=== PATIENT | male | born 1960 | race Caucasian/White ===

== ENCOUNTER 2020-03-13 10:38 | Emergency (ER) | payer BC ==
[~2020-03-13] VITALS: Ht 175.3 cm; Wt 56.0 kg
[2020-03-13 11:27] VITALS: BP 117/79
--- NOTE | 2020-03-13 11:42 | PHYS DOC ---
Past Medical History Past Medical History: No Pertinent History Past Surgical History: Other Additional Past Surgical Histo: left carpal tunnel Smoking Status: Current Every Day Smoker Alcohol Use: Heavy General Adult EDM: Chief Complaint: LOWER EXT PAIN HPI: HPI: Patient is a 60 year old [f__sex] who presents with [] Review of Systems: Review of Systems: Constitutional: Denies fever or chills. [] Eyes: Denies change in visual acuity. [] HENT: Denies nasal congestion or sore throat. [] Respiratory: Denies cough or shortness of breath. [] Cardiovascular: Denies chest pain or edema. [] GI: Denies abdominal pain, nausea, vomiting, bloody stools or diarrhea. [] : Denies dysuria. [] Musculoskeletal: Denies back pain or joint pain. [] Integument: Denies rash. [] Neurologic: Denies headache, focal weakness or sensory changes. [] Endocrine: Denies polyuria or polydipsia. [] Lymphatic: Denies swollen glands. [] Psychiatric: Denies depression or anxiety. [] Heart Score: Risk Factors: Risk Factors: DM, Current or recent (<one month) smoker, HTN, HLP, family history of CAD, obesity. Risk Scores: Score 0 - 3: 2.5% MACE over next 6 weeks - Discharge Home Score 4 - 6: 20.3% MACE over next 6 weeks - Admit for Clinical Observation Score 7 - 10: 72.7% MACE over next 6 weeks - Early Invasive Strategies Allergies: Allergies: Allergies Coded Allergies Type Severity Reaction Last Updated Verified No Known Drug Allergies 03/13/20 No Physical Exam: PE: Constitutional: Well developed, well nourished, no acute distress, non-toxic appearance. [] HENT: Normocephalic, atraumatic, bilateral external ears normal, oropharynx moist, no oral exudates, nose normal. [] Eyes: PERRLA, EOMI, conjunctiva normal, no discharge. [] Neck: Normal range of motion, no tenderness, supple, no stridor. [] Cardiovascular:Heart rate regular rhythm, no murmur [] Lungs & Thorax: Bilateral breath sounds clear to auscultation [] Abdomen: Bowel sounds normal, soft, no tenderness, no masses, no pulsatile masses. [] Skin: Warm, dry, no erythema, no rash. [] Back: No tenderness, no CVA tenderness. [] Extremities: No tenderness, no cyanosis, no clubbing, ROM intact, no edema. [] Neurologic: Alert and oriented X 3, normal motor function, normal sensory function, no focal deficits noted. [] Psychologic: Affect normal, judgement normal, mood normal. [] Current Patient Data: Vital Signs: Vital Signs Date Time Temp Pulse Resp B/P (MAP) Pulse Ox O2 Delivery O2 Flow Rate FiO2 03/13/20 11:27 99.0 90 18 117/79 (92) 98 Room Air 99.0 EKG: EKG: [] Radiology/Procedures: Radiology/Procedures: [][facility] [address] [place] [address] IMAGING REPORT Signed PATIENT: JACKSON PIÑA ACCOUNT: [id number] : 1960 LOCATION: ER AGE: 60 SEX: M EXAM STATUS: REG ER ORD. PHYSICIAN: ADITI PATEL DO REASON: LOWER BACK PAIN THAT RADIATING TO RIGHT LEG PROCEDURE: LUMBAR SPINE 2-3V LUMBAR SPINE 2-3V 03/13/2020 11:41 AM INDICATION: Lower back pain radiating to the right leg COMPARISON: None available. TECHNIQUE: 3 views of the lumbar spine are provided. FINDINGS/ IMPRESSION: There are 5 nonrib-bearing lumbar vertebral bodies. There is minimal retrolisthesis of L1 on L2, L2 on L3 and L3 on L4. No acute fractures identified. Spinous processes are intact. Transverse processes are intact. Nonobstructed bowel gas pattern. Electronically signed by: Martha Cintron MD (03/13/2020 12:18 PM) [id number] DICTATED and SIGNED BY: MARTHA CINTRON MD DATE: 03/13/20 1218 Course & Med Decision Making: Course & Med Decision Making Pertinent Labs and Imaging studies reviewed. (See chart for details) [] Dragon Disclaimer: Dragon Disclaimer: This electronic medical record was generated, in whole or in part, using a voice recognition dictation system. Departure Departure Impression: Primary Impression: Right-sided low back pain with sciatica Disposition: 01 HOME, SELF-CARE Condition: STABLE Patient Instructions: Sciatica Additional Instructions: PLEASE FOLLOW UP WITH YOUR FAMILY DOCTOR FOR OUTPATIENT MRI OF YOUR LUMBAR SPINE THIS MONTH. Scripts Naproxen Sodium (ANAPROX DS) 550 Mg Tablet 1 TAB PO BID PRN for PAIN for 10 Days, #20 TAB 0 Refills Prov: ADITI PATEL DO 03/13/20 Prednisone (PREDNISONE) 20 Mg Tablet 20 MG PO DAILY for 7 Days, #7 TAB Prov: ADITI PATEL DO 03/13/20 Justicifation of Admission Dx: Justifications for Admission: Justification of Admission Dx: N/A ADITI PATEL DO Mar 13, 2020 11:42
--- NOTE | 2020-03-13 12:21 | RAD ---
LUMBAR SPINE 2-3V 03/13/2020 11:41 AM INDICATION: Lower back pain radiating to the right leg COMPARISON: None available. TECHNIQUE: 3 views of the lumbar spine are provided. FINDINGS/ IMPRESSION: There are 5 nonrib-bearing lumbar vertebral bodies. There is minimal retrolisthesis of L1 on L2, L2 on L3 and L3 on L4. No acute fractures identified. Spinous processes are intact. Transverse processes are intact. Nonobstructed bowel gas pattern. Electronically signed by: Martha Ochoa MD (03/13/2020 12:18 PM) [id number]
[2020-03-13] MEDS ORDERED: PRED20TA PO (12:33)
[2020-03-13] MEDS ORDERED: NAPR-682 PO (12:33)
== END 2020-03-13 12:40 | disposition home or self-care (01) ==
LOC: ER 10:38
DX: M54.41 Lumbago with sciatica, right side (principal); F17.200 Nicotine dependence, unspecified, uncomplicated; F10.20 Alcohol dependence, uncomplicated; Y90.9 Presence of alcohol in blood, level not specified
CPT/HCPCS: 72100; 99283

== ENCOUNTER → 2020-05-11 | Outpatient (CLI) | payer BC ==
[~2020-05-11] MED LIST: IBUP-1027 PO; IOHEXOL 180 MG/ML 10 ML VIAL. ONE; NAPR-682 PO; NAPR220C4 PO; PRED20TA PO; methylPREDNISolone ACETATE 40 MG/ML VIAL. ONE; methylPREDNISolone ACETATE 80 MG/ML VIAL. ONE
--- NOTE | 2020-05-11 09:37 | PDOC1 ---
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 Patient reports pain now is increasing in the low back rating the posterior gluteus more on the right than the left but present bilaterally posterior gluteus posterior thighs posterior calf into the ankles and feet with some numbness and tingling in the toes on the right side as well. Patient has tried ibuprofen as well as Aleve both which decreased the pain but only for about an hour. Patient reports he is having difficulty sleeping at night will awaken him sleep release once a night does not affect his bowel bladder control does affect his ability to walk is not use any assistive devices reports at times he feels very unstable and he has significant fatigue in the right leg walking more than about 10 minutes. Patient reports he been off work now for over a month secondary to the pain. Patient scribes pain as tingling and numbness in the right leg a little aching in the back shooting and throbbing in the right leg and some in the left leg as well patient reports his disability rating 0-10 10 being the worst is a 7 with him how responsibilities and recreation 6 with social activity 10 with occupational activities 5 with self-care and 0 with life support activities except for sleeping. Patient have an MRI scan lumbar spine showing multilevel degenerative change and L5-S1 shallow broad-based posterior central right paracentral disc protrusion with a right foraminal to lateral disc retrusion osteophyte complex superimposed on disc bulge and endplate remodeling. Patient has associated mild left foraminal stenosis and abutment of the exiting L5 nerve roots. Patient reports no overt muscular loss but significant fatigability no bowel or bladder incontinence. PAST MEDICAL HISTORY: PMH: Hearing loss, arthritis, cigarette smoking PREVIOUS SURGERIES: Past Surgical Hx: Carpal tunnel release 2018 CURRENT MEDICATIONS: Current Meds: Active Scripts Medications Dose Route/Sig Max Daily Dose Days Date Category Aleve (Naproxen Sodium) 220 Mg Capsule 220 Mg PO BID 05/11/20 Reported Ibuprofen 400 Mg Tablet 400 Mg PO PRN Q6HRS PRN 05/11/20 Reported ALLERGIES; Allergies: Coded Allergies: No Known Drug Allergies (Unverified , 03/13/20) FAMILY HISTORY: Family Hx: No major medical problems or conditions that he is aware of SOCIAL HISTORY: Social Hx: Patient drinks about 4 beers a day smokes marijuana occasionally once or twice a month smokes cigarettes about 1 pack a day for the past 40 years continues to smoke patient is single lives locally in [facility] works as a concrete construction trades contractor REVIEW OF SYSTEMS: ROS: Positive for those items mentioned in history of present illness, all systems are reviewed, otherwise negative, is complete full and well-documented on patient's chart. PHYSICAL EXAM: VS: Blood pressure is 123/83 pulse 99 respirations 18 temperature 98.1 F height is 5 feet 8 inches weight is 118 pounds PE: PHYSICAL EXAMINATION: GENERAL: The patient is awake, alert, oriented, appropriate, very pleasant demeanor HEENT: Shows normocephalic, atraumatic. Extraocular movements are intact and symmetrical. Oral cavity: Mucous membranes moist and pink. Dentition is intact. NECK: Shows anterior throat supple without palpable lymphadenopathy noted. Swallow reflex symmetrical. CHEST: Shows normal on inspection. Breath sounds are clear bilaterally, no rales rhonchi or wheezes. HEART: Shows S1, S2 clear. No murmurs auscultated. ABDOMEN: Soft, nontender, nondistended, flat. No palpable organomegaly is noted. No rebound or guarding demonstrated. BACK: Shows spine grossly in the midline. Normal-appearing cervical lordotic curvature. There is slightly increased thoracic kyphosis, some minor flattening of the lumbar lordotic curvature. Lumbar paraspinous muscles show symmetrical on inspection, on palpation shows some moderate tenderness diffusely throughout the upper, middle and lower distribution of the paraspinous muscles bilaterally without specific trigger points, without radiation of pain. The patient has good rotational motion of the lumbar spine, both laterally as well as extension and flexion without significant difficulty. No tenderness over the spinous processes, sacrum or sacroiliac regions. EXTREMITIES: Lower extremities show deep tendon reflexes 2+ in the patellar and tendo calcaneus tendons. Motor exam is 4 on a scale of 5 with right dorsiflexion, extension, quadriceps and hamstring flexion and 5/5 on the left. Peripheral pulses are 1+ posterior tibial. No peripheral edema is noted bilaterally. Lower extremities are warm and dry to touch, equal in color and appearance. Straight leg raise noted to be positive on the right about 35 degrees, left side is negative. Gaenslen's and Doug's maneuvers are negative bilaterally as well. The patient is able to stand, stand on his toes without significant difficulty or loss of balance is walking with a slight favoring gait does appear to favor the right lower extremity not use any assistive devices to ambulate. SKIN: Shows warm and dry, good turgor. No edema. No sores, rashes or bruising throughout. IMPRESSION: Impression: 60-year-old male with approximate 1 year history increasing pain low back right greater than left lower extremity in a radicular fashion MRI scan lumbar spine as noted Arthritis Cigarette smoking Plan: Options were discussed with the patient including conservative medical management physical therapies interventional techniques. He like to pursue interventional techniques. We discussed a lumbar epidural steroid injection using descriptions as well as anatomical models to describe the procedure. Risks were discussed including but not limited to: Bleeding, infection, possibility of epidural hematoma and subsequent neurological compromise, dural puncture, headaches, spinal cord and/or nerve damage, side effects of steroid medication, and poor results regarding pain control. Patient understands wished to proceed. Patient will return to clinic in approximate 2 weeks for follow-up, was counseled as to return appointment activity level and side effects to be aware of. Procedure is lumbar epidural steroid injection under local anesthetic using sterile prep and drape at the L5-S1 level using C-arm fluoroscopic guidance in both AP and lateral views medications injected is 120 mg Depo-Medrol + 10 mL preservative-free normal saline and 2 mL contrast- condition at discharge is stable patient tolerated procedure well had no complications. NANCY VERAS MD May 11, 2020 09:37
== END | disposition home or self-care (01) ==
LOC: PNCL 08:36
PROVIDERS: ATTEND Anesthesiology
DX: M54.5 Low back pain (principal); M79.604 Pain in right leg; M48.061 Spinal stenosis, lumbar region without neurogenic claudication; M19.90 Unspecified osteoarthritis, unspecified site; Z87.891 Personal history of nicotine dependence; Z79.899 Other long term (current) drug therapy; Z98.890 Other specified postprocedural states
CPT/HCPCS: 62323; J1030; J1040; Q9965

== ENCOUNTER → 2020-05-25 | Outpatient (CLI) | payer BC ==
[~2020-05-25] MED LIST changes: +GABA-585 PO
--- NOTE | 2020-05-25 08:42 | PDOC ---
Progress Note - Pain Clinic Date of Service: DOS: DATE: 05/25/20 TIME: 08:39 Diagnosis: Dx: Lumbar radiculopathy with lumbar degenerative disc disease and lumbar spinal stenosis History or Present Illness: HPI: 60-year-old male returns follow-up status post lumbar epidural steroid injection x1. Patient reports good relief and only for few days after the injection now only about 5% improved overall patient ports pain low back right lower extremity posterior gluteus posterior lateral thigh posterior calf and into the foot with numbness and tingling patient ports the tingling in his foot was much better for few days after the injection but the rest the pain has been returned patient reports is aching and tingling on and off in intensity worse with walking standing changing position specially with bending or stooping and on his feet any more than about 5 to 10 minutes the pain is becoming unbearable. Patient reports it does not awaken her from sleep at night better with sitting or laying down. Patient rates his pain as an 8 on scale 10 is worse over the past week for an average 1 its least is a 4 today. Patient reports no new motor or sensory deficits no new bowel or bladder incontinence or other complaints. Physical Exam: VS: Blood pressure is 132/90 pulse 94 respirations 16 temperature 98.3 F is 5 foot 9 inches weight is 117 pounds PE: PHYSICAL EXAMINATION: GENERAL: The patient is awake, alert, oriented, appropriate, very pleasant demeanor HEENT: Shows normocephalic, atraumatic. Extraocular movements are intact and symmetrical. Oral cavity: Mucous membranes moist and pink. NECK: Shows anterior throat supple without palpable lymphadenopathy noted. Swallow reflex symmetrical. CHEST: Shows normal on inspection. Breath sounds are clear bilaterally, distant but no rales rhonchi or wheezes. HEART: Shows S1, S2 clear. No murmurs auscultated. ABDOMEN: Soft, nontender, nondistended, flat. No palpable organomegaly is noted. No rebound or guarding demonstrated. BACK: Shows spine grossly in the midline. Normal-appearing cervical lordotic curvature. There is slightly increased thoracic kyphosis, some minor flattening of the lumbar lordotic curvature. Lumbar paraspinous muscles show symmetrical on inspection, on palpation shows some moderate tenderness diffusely throughout the upper, middle and lower distribution of the paraspinous muscles without specific trigger points, without radiation of pain. The patient has good rotational motion of the lumbar spine, both laterally as well as extension and flexion without significant difficulty. No tenderness over the spinous processes, sacrum or sacroiliac regions. EXTREMITIES: Lower extremities show deep tendon reflexes 2+ in the patellar and tendo calcaneus tendons. Motor exam is 4 on a scale of 5 with right dorsiflexion, extension, quadriceps and hamstring flexion and 5/5 on the left. Peripheral pulses are 1+ posterior tibial. No peripheral edema is noted bilaterally. Lower extremities are warm and dry to touch, equal in color and appearance. SKIN: Shows warm and dry, good turgor. No edema. No sores, rashes or bruising throughout. Procedure: Procedure: Options were discussed with the patient. Patient chart was reviewed his current medication regimen updated current review of systems updated today as well. We will proceed with a second in a series lumbar epidural steroid injection today with fluoroscopic guidance. Risks were discussed including but not limited to: Bleeding, infection, possibility of epidural hematoma and subsequent neurological compromise, dural puncture, headaches, spinal cord and/or nerve damage, side effects of steroid medication, and poor results regarding pain control. Patient understands wished to proceed. Patient will return to the clinic in approximate 2 weeks for follow-up, was counseled as to return appointment activity level and side effects to be aware of. Medication Injected: Med Injected: Procedure is lumbar epidural steroid injection under local anesthetic using sterile prep and drape at the L5-S1 level using C-arm fluoroscopic guidance in both AP and lateral views medications injected is 120 mg Depo-Medrol + 10 mL preservative-free normal saline and 2 mL contrast- condition at discharge is stable patient tolerated procedure well had no complications. Condition at Discharge: Condition at Discharge: Condition at discharge is stable, patient tolerated the procedure well and had no complications. NANCY VERAS MD May 25, 2020 08:42
== END | disposition home or self-care (01) ==
LOC: PNCL 07:57
PROVIDERS: ATTEND Anesthesiology
DX: M51.16 Intervertebral disc disorders with radiculopathy, lumbar region (principal); M48.061 Spinal stenosis, lumbar region without neurogenic claudication; F17.210 Nicotine dependence, cigarettes, uncomplicated; Z79.899 Other long term (current) drug therapy; Z98.890 Other specified postprocedural states; Z72.89 Other problems related to lifestyle
CPT/HCPCS: 62323; J1030; J1040; Q9965

== ENCOUNTER → 2020-12-04 | Outpatient (CLI) | payer BC ==
[~2020-12-04] MED LIST changes: +DOCU-153 PO; +HYDR-2761 PO; -IOHEXOL 180 MG/ML 10 ML VIAL. ONE; +METH-562 PO; -methylPREDNISolone ACETATE 40 MG/ML VIAL. ONE; -methylPREDNISolone ACETATE 80 MG/ML VIAL. ONE
[2020-12-04 14:07] LABS: BASO # 0.1 x10^3/uL (0.0-0.2); BASO % 1 % (0-3); EOS # 0.1 x10^3/uL (0.0-0.7); EOS % 2 % (0-3); HEMATOCRIT 50.5 % (39.0-53.0); HEMOGLOBIN 17.7 g/dL (13.0-17.5); LYMPH # 1.2 x10^3/uL (1.0-4.8); LYMPH % 25 % (24-48); MEAN CORPUSCULAR HEMOGLOBIN 34 pg (25-35); MEAN CORPUSCULAR HGB CONC 35 g/dL (31-37); MEAN CORPUSCULAR VOLUME 97 fL (79-100); MONO % 21 % (0-9); NEUT # 2.4 x10^3/uL (1.8-7.7); NEUT % 52 % (31-73); PLATELET COUNT 232 x10^3/uL (140-400); RED BLOOD COUNT 5.22 x10^6/uL (4.30-5.70); RED CELL DISTRIBUTION WIDTH 14.7 % (11.5-14.5); WHITE BLOOD COUNT 4.6 x10^3/uL (4.0-11.0)
[2020-12-04 14:40] LABS: ALBUMIN 3.2 g/dL (3.4-5.0); ALBUMIN/GLOBULIN RATIO 0.8 (1.0-1.7); CALCIUM 8.2 mg/dL (8.5-10.1); GFR 76.5; POTASSIUM 3.8 mmol/L (3.5-5.1); TOTAL BILIRUBIN 0.4 mg/dL (0.2-1.0); TOTAL PROTEIN 7.3 g/dL (6.4-8.2)
[2020-12-04 15:09] LABS: % BANDS 6 % (0-9); % BASOS 2 % (0-3); % EOS 2 % (0-5); % MONOS 15 % (0-10); % SEGS 46 % (35-66); PLT ESTIMATE ADEQUATE (ADEQUATE)
[2020-12-04 15:12] LABS: % ATYL 2 % (0-0); % LYMPHS 27 % (24-48); ANISOCYTOSIS SLIGHT
== END ==
LOC: SURGPAT 13:14 → EDSTATUS 13:30
PROVIDERS: ATTEND Neurological Surgery
DX: Z01.818 Encounter for other preprocedural examination (principal); M51.16 Intervertebral disc disorders with radiculopathy, lumbar region; M54.5 Low back pain; M48.062 Spinal stenosis, lumbar region with neurogenic claudication
CPT/HCPCS: 36415; 80053; 85007; 85025; 87641

== ENCOUNTER → 2020-12-08 | Outpatient (CLI) | payer BC | LOC: LAB 11:20 | PROVIDERS: ATTEND Neurological Surgery | DX: Z01.812 Encounter for preprocedural laboratory examination (principal); Z20.822 Contact with and (suspected) exposure to COVID-19; M51.16 Intervertebral disc disorders with radiculopathy, lumbar region; M48.062 Spinal stenosis, lumbar region with neurogenic claudication | CPT/HCPCS: U0003 ==

== ENCOUNTER 2020-12-11 07:14 | Observation (INO) | payer BC ==
[2020-12-04 14:03] VITALS: BP 131/62
[2020-12-11] VITALS (10 sets, daily range): BP systolic 86–138; BP diastolic 43–83
[~2020-12-11] VITALS: Ht 175.3 cm; Wt 55.2 kg
[~2020-12-11 07:14] MED LIST changes: -DOCU-153 PO; -HYDR-2761 PO; +IV RINGERS,LACTATED 1000ML 1,000 ML IV SCH; -METH-562 PO; +PROCHLORPERAZINE 10 MG/2 ML VIAL. IVP PRN; +fentaNYL PF VIAL 100 MCG/2 ML VIAL IVP PRN
[2020-12-11] MEDS ORDERED: KETOROLAC 60 MG/2 ML VIAL. ONE (07:36)
[2020-12-11] MEDS ORDERED: GELATIN SPONGE SIZE 100. ONE (07:36)
[2020-12-11] MEDS ORDERED: BUPIVACAINE-EPI 0.5%-1:200000 MPF 30 ML VIAL. ONE (07:36)
[2020-12-11] MEDS ORDERED: THROMBIN TOPICAL 20,000 UNIT SPRAY.SYRN KIT TP ONE (07:36)
[2020-12-11] MEDS ORDERED: GLYCOPYRROLATE 1 MG/5 ML VIAL. ONE (08:13)
[2020-12-11] MEDS ORDERED: ROCURONIUM 50 MG/5 ML VIAL. ONE (08:13)
[2020-12-11] MEDS ORDERED: MIDAZOLAM HCL/PF 2 MG/2 ML VIAL. ONE (08:13)
[2020-12-11] MEDS ORDERED: REMIFENTANIL 2 MG VIAL. IV ONE (08:13)
[2020-12-11] MEDS ORDERED: PHENYLEPHRINE 10 MG/ML VIAL. ONE (08:20)
[2020-12-11] MEDS ORDERED: ONDANSETRON PF 4 MG/2 ML VIAL. ONE (08:22)
[2020-12-11] MEDS ORDERED: LIDOCAINE 2% PF 5 ML VIAL. ONE (08:22)
[2020-12-11] MEDS ORDERED: PROPOFOL 10 MG/ML (20ML) VIAL. IV ONE (08:22)
[2020-12-11] MEDS ORDERED: DESFLURANE > 120 MINUTES IH ONE (08:22)
[2020-12-11] MEDS ORDERED: DEXAMETHASONE SOD PHOS 20 MG/5 ML VIAL. ONE (08:22)
[2020-12-11] MEDS ORDERED: KETOROLAC 30 MG/ML VIAL. ONE (08:22)
[2020-12-11] MEDS ORDERED: PROPOFOL 50 ML IV ONE ×2 (09:36)
[2020-12-11] MEDS ORDERED: NEOSTIGMINE METHYLSULFATE 5 MG/5 ML SYRINGE. ONE (10:59)
[2020-12-11] MEDS ORDERED: ACETAMINOPHEN 325 MG TABLET. PO PRN (11:15)
[2020-12-11] MEDS ORDERED: MAG HYDROX/ALUMINUM HYD/SIMETH 30 ML ORAL.SUSP PO PRN (11:15)
[2020-12-11] MEDS ORDERED: CALCIUM CARBONATE 500 MG TAB.CHEW PO PRN (11:15)
[2020-12-11] MEDS ORDERED: fentaNYL PF VIAL 100 MCG/2 ML VIAL IVP PRN (11:15)
[2020-12-11] MEDS ORDERED: diphenhydrAMINE HCL 25 MG CAPSULE PO PRN (11:15)
[2020-12-11] MEDS ORDERED: METHOCARBAMOL 750 MG TABLET PO PRN (11:15)
[2020-12-11] MEDS ORDERED: MAGNESIUM HYDROXIDE 2,400 MG/30 ML ORAL.SUSP. PO PRN (11:15)
[2020-12-11] MEDS ORDERED: HYDROcodone/APAP 5/325MG 1 TAB TABLET PO PRN ×2 (11:15)
[2020-12-11] MEDS ORDERED: NALOXONE 0.4 MG/ML VIAL. IV PRN (11:15)
[2020-12-11] MEDS ORDERED: 0.9 % SODIUM CHLORIDE 10 ML DISP.SYRIN. IV PRN (11:15)
[2020-12-11] MEDS ORDERED: fentaNYL PF VIAL 100 MCG/2 ML VIAL ONE (11:23)
[2020-12-11] MEDS: fentaNYL PF VIAL 100 MCG/2 ML VIAL IVP PRN ×2 (11:29→11:44)
[2020-12-11] MEDS ORDERED: MORPHINE SULFATE 2 MG/ML INJ. ONE (11:40)
[2020-12-11] MEDS: MORPHINE SULFATE 2 MG/ML INJ. IVP PRN ×2 (11:44→11:55)
[2020-12-11] MEDS ORDERED: HYDROmorphone 2 MG/ML VIAL ONE (11:57)
--- NOTE | 2020-12-11 11:59 | OP ---
DATE OF SURGERY: 12/11/2020 PREOPERATIVE DIAGNOSIS: Herniated lumbar disc, L5-S1, right with foraminal disc herniation L5-S1, right. OPERATIONS PERFORMED: Hemilaminotomy and microdiscectomy L5-S1 right transfacet exposure with microdiscectomy for lateral herniated disk, L5-S1, right The operation was done with EMG monitoring, SSEP monitoring, fluoroscopy, microscopic dissection. SPECIMEN: Disc and decompression. SURGEON: Carroll Rueda M.D. HAULING CONTRACTOR: HAYDER Cervantes assisted with the surgery, she assisted with the exposure, the microdiscectomy as well as the closure. OPERATIVE INDICATIONS: The patient is a pleasant 60-year-old who developed intractable back and right leg pain, which failed conservative measures. On imaging studies, he had the above-mentioned findings. After failing to improve, I recommended lumbar microsurgery. I spoke with him about the surgery, the risks, the technique and expected postoperative course. I further explained that based on the length of time he had the problem, it was possible to get totally decompress the roots and he could continue to have difficulties with pain. He understood the surgery, he understood the risks, he understood the technique and he wished to go ahead. DESCRIPTION OF PROCEDURE: Following general endotracheal anesthesia, the patient was positioned prone on the Mike table. Lumbar region was prepped and draped in standard fashion. Layers of impulse boots were applied for DVT prophylaxis. The microscope was draped, fluoroscopy was draped and brought into the field and monitoring was established. Ancef 2 grams given less than one hour prior to initiation of surgery. Using fluoroscopic guidance, an incision was made over the L5-S1 interspace. I dissected down through skin and subcutaneous tissue, reflected the paraspinal muscles and brought in the high speed air drill with the microscope. The remainder of the surgery done with microscope using microscopic technique. I burred down a generous hemilaminotomy, trimmed away ligamentum flavum and exposed the dura and the exiting S1 root. There was a large bulging disc beneath this. At this point, then I worked superiorly and laterally as well as straight lateral from the disc and removed the medial side of the foramen and as I worked, I visualized the exiting L5 root. There was a large bone spur or disc osteophyte complex, which was lifting and compressing the inferior aspect of the L5 root as it moved laterally in the foramen. Then, I gently retracted the root superiorly, laterally and drilled this spur away with high speed air drill, I removed the disc in this location. Using a #11 blade incised the annulus and I performed a discectomy laterally. I then retracted as far medially and then performed a discectomy with pituitary rongeurs to fully decompress the S1 root. Following this, then I explored carefully. Both the S1 and L5 roots were well decompressed. I irrigated copiously. Throughout the operation, I maintained excellent hemostasis and then I gently remove the retractor, obtained hemostasis in the muscle and I closed the wound in layers with absorbable suture and the skin was closed with 4-0 subcuticular stitch. The surgery went very well. YOSELYN DR: Raiza TID: [id number] SIMONE
[2020-12-11] MEDS: HYDROmorphone 2 MG/ML VIAL IVP PRN ×3 (12:02→12:32)
[2020-12-11] MEDS ORDERED: POLYVINYL ALCOHOL 1.4% OPHTH SOLUTION 15ML BOTTLE. OU PRN (13:30)
--- NOTE | 2020-12-11 13:30 | NUR ---
received from recovery. He is alert and oriented x4. he is complaining of pain in incision and right hip. the pain in his right foot is gone. he has good sensation, pulses and motion. dressing to back has a small amount serosanguineous drainage. ice to back repositioned onto side. rating pain a "6"; refused pain medication. eye drops gotten for complaints of something in his eye
[2020-12-11] MEDS: POTASSIUM CL 20MEQ D5-0.45NACL 1,000 ML IV SCH (14:03)
--- NOTE | 2020-12-11 14:56 | HP ---
ADMIT DATE: 12/11/2020 PREOPERATIVE HISTORY AND PHYSICAL HISTORY OF PRESENT ILLNESS: The patient was seen in the office. He is a pleasant 60-year-old man who has difficulty with low back pain and right hip, knee and lateral foot pain. The problem started in 10/2018 while he was mushroom hunting. He says his pain is 2/10 in his back, 4/10 in the right ankle and 8-9/10 in the right hip. Walking increases his pain. Sitting helps him. He has been off work since 03/2020 because of pain. He has seen a chiropractor and had decompression therapy with no benefit. He also has undergone 3 epidural steroid injections with no benefit. CURRENT MEDICATIONS: None. PAST MEDICAL HISTORY: Denies previous medical history. SURGICAL HISTORY: No previous surgery. FAMILY HISTORY: Noncontributory. 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 Single. Smokes 2 packs a day for 40 years. Drinks 6 alcoholic beverages per day. ALLERGIES: No known drug allergies. REVIEW OF SYSTEMS: A 12-point review of systems was performed and is noncontributory except that I mentioned above. PHYSICAL EXAMINATION: GENERAL: Alert, pleasant, in no acute distress. HEENT: Head: Normocephalic, atraumatic. SKIN: Warm and dry. MUSCULOSKELETAL: Lumbar paraspinal muscle bulk is normal, restricted range of motion of the lumbar spine, [id number] tenderness of the lower lumbar spine with palpation, normal range of motion of the lower extremities bilaterally. EXTREMITIES: No clubbing, cyanosis or edema; internal and external rotation of the right hip was unremarkable. NEUROLOGIC: Alert and oriented x 3. Normal recent and remote memory, strength is 5/5 in the lower extremities, sensory is intact to light touch in the lower extremities, reflexes were present and symmetric in the lower extremities bilaterally, negative straight leg raising bilaterally, normal gait. IMAGING: I reviewed a lumbar MRI scan from 03/2020. On that study at L5-S1 on the right, there is a right paracentral disk protrusion and right foraminal and lateral disk protrusion and disk osteophyte complex. There is moderate right foraminal stenosis with abutment of the exiting right L5 root. There is narrowness of the lateral recess, which does abut the right S1 root. ASSESSMENT AND PLAN: I spent a considerable time discussing the findings with him. He does have foraminal narrowing as well as lateral recess stenosis at L5-S1 on the right. This could explain certainly a portion of his symptoms. He has had the problem for 2 years. My concern is that although he would make some improvement with surgery, he may not improve to the point that he could return to work. I discussed the surgery with him including the technique, the rationale and the risk. He understands. He would like to proceed. VINNY DR: Tanisha TID: [id number]
--- NOTE | 2020-12-11 15:00 | NUR ---
sleeping. iv infusing without problems
--- NOTE | 2020-12-11 18:36 | NUR ---
standing at bedside. dressing to back has a moderate amount of drainage; reinforced with abd Medipore tape. ice to back for comfort.
[2020-12-11] MEDS: DOCUSATE SODIUM 100 MG CAPSULE. PO SCH (21:50)
[2020-12-12 03:00] VITALS: BP 159/66
[2020-12-12] MEDS: POTASSIUM CL 20MEQ D5-0.45NACL 1,000 ML IV SCH (04:08)
[2020-12-12 07:00] VITALS: BP 104/66
[2020-12-12] MEDS: DOCUSATE SODIUM 100 MG CAPSULE. PO SCH ×2 (09:00→10:33)
[2020-12-12] MEDS ORDERED: METH-562 PO (09:31)
[2020-12-12] MEDS ORDERED: HYDR-2761 PO (09:31)
[2020-12-12] MEDS ORDERED: DOCU-153 PO (09:31)
--- NOTE | 2020-12-12 09:32 | DISCH ---
DISCHARGE INSTRUCTIONS Condition on Discharge Condition on Discharge: Stable Activity After Discharge Activity Instructions for Disc: Activity as tolerated, Avoid exertion Other activity instructions: no driving for a week Bathing Instructions: Shower-keep dressing dry, No Tub Bath until see Diet after Discharge Additional Diet Restrictions: resume home diet Wound Incision Care Wound/Incision Care: Ice to area for comfort Other wound/incision instructi: may remove dressing in 48 hours if dry then may shower, no soaking Contacting the DRGela after DC Call your doctor for: Concerns you may have Follow-Up Follow up with: Dr. Barron's nurse in 2 weeks [phone] ADITYA BARRON MD Dec 12, 2020 09:32
--- NOTE | 2020-12-12 11:34 | NUR ---
Patient discharged with self care today via ambulation, accompanied by this RN. Patient is stable, IV removed, prescriptions, and discharge paperwork given to patient. Patient verbalized understanding of follow up and discharge instruction.
--- NOTE | 2020-12-12 18:06 | PATHOLOGY ---
[facility] Accession Number: [id number] . 01 Material submitted: . vertebral column - LUMBAR DISC AND DECOMPRESSION. Modifiers: LUMBAR DISC . 01 Clinical history: . LUMBAR HERNIATED DISC WITH RADICULOPATHY STENOSIS LUMBAR HEMILAMINOTOMY TRANSFACET DECOMPRESSION MICRODISCECTOMY L5-21 . LUMBAR HERNIATED DISC RAD... . 02 Diagnosis: Segments of fibrocartilaginous tissue and bone, lumbar disc and decompression: - Degenerative changes of fibrocartilaginous tissue. LBQ 12/12/2020 1552 Local . 02 Comment: There is no evidence of an acute inflammatory process or malignancy. (JPM/db; 12/12/2020) . 02 Electronically signed: . Vahe Nicholson MD, Pathologist NPI- [id number] . 01 Gross description: . Received in formalin labeled "Robert Mars, lumbar disc and decompression" is a 2.8 x 2.8 x 0.5 cm aggregate of pink-jasso friable soft tissue and scant jasso-white bone. The specimen is submitted entirely in cassette A1 following decalcification. ([facility]; 12/11/2020) [facility] 12/11/2020 1746 Local . 02 Pathologist provided ICD-10: M51.26, M54.10 . 02 CPT . 973839, 176351 Specimen Comment: A courtesy copy of this report has been sent to [phone], [phone] Specimen Comment: [id number] Specimen Comment: Report sent to / DR ESPINOZA Performed at: [address], [place], [place] [id number] MD Delgado Duran MD Phone: [phone] Performed at: 02 [facility] [address] [place], [place] [id number] MD Vahe Nicholson MD Phone: [phone]
== END 2020-12-12 11:44 | disposition home or self-care (01) ==
LOC: SURG 07:14 → 4 NORTH 11:06
PROVIDERS: ADMIT Neurological Surgery; ATTEND Neurological Surgery
DX: M51.17 Intervertebral disc disorders with radiculopathy, lumbosacral region (principal); M51.26 Other intervertebral disc displacement, lumbar region; M25.551 Pain in right hip; M25.561 Pain in right knee; F17.210 Nicotine dependence, cigarettes, uncomplicated
CPT/HCPCS: 63030; 88304; 88311; 96360; 96361; 97116; 97162; 97530; 99406; A4364; A4556; A4930; A6254; A6258; G0378; G0379; J0690; J1100; J1170; J1885; J2250; J2270; J2370; J2405; J2704; J2710; J3010; J3480; J3490; 76000; A4222; A4223; A4657